=== PATIENT | female | born 1940 | race African-American/Black ===

== ENCOUNTER → 2016-11-13 | Outpatient (CLI) | payer MEDICARE ==
[2014-10-02 13:17] VITALS: BP 112/58
[~2016-11-13] MED LIST: HYDR25TA PO
--- NOTE | 2016-11-13 13:17 | KCIC ---
PROCEDURE Two-view chest HISTORY Chronic shortness of air, bronchitis COMPARISON 10/23/2011 FINDINGS Two views of the chest are submitted. There is again severe superior thoracic dextroscoliosis. There is again volume loss of the superior left hemithorax. Mild interstitial opacity has not convincingly changed, also likely mild fibrotic change of the mid left perico thorax. There is no significant dependent pleural fluid or pneumothorax. No convincing new infiltrate is identified. Heart size is stable. IMPRESSION There is again severe superior thoracic dextroscoliosis and volume loss of the superior left hemithorax, no convincing radiographic evidence of acute cardiopulmonary disease. Electronically signed by: James Mcdermott MD (Nov 13, 2016 13:16:19)
== END | disposition home or self-care (01) ==
LOC: KCIC 11:42
PROVIDERS: ATTEND Internal Medicine Pulmonary Disease
DX: R06.02 Shortness of breath (principal); Z87.09 Personal history of other diseases of the respiratory system
CPT/HCPCS: 71020

== ENCOUNTER 2019-06-21 10:12 | Emergency (ER) | payer MEDICARE ==
[~2019-06-21] VITALS: Ht 160 cm; Wt 49.0 kg
[2019-06-21] MEDS ORDERED: ALPRAZolam 0.5 MG TABLET PO ONE (11:00)
--- NOTE | 2019-06-21 11:11 | PHYS DOC ---
Past Medical History Past Medical History: Anxiety, Asthma, Bipolar, Other Additional Past Medical Histor: colitis, asthma, Past Surgical History: Hysterectomy, Other Additional Past Surgical Histo: hiatal hernia Alcohol Use: None Drug Use: None Adult General Chief Complaint Chief Complaint: SHORTNESS OF BREATH [facility] HPI Patient is a 79 year old female patient with history of bipolar and anxiety who presents with complaining of shaking and weakness. Patient complaining of sudden onset of weakness and shaking of upper extremities that started about 90 minutes prior to arrival to ER with lives weakness and problem with walking because of weakness. Patient denies focal weakness and numbness of lower extremities. Patient also complaining of shortness of breath started about 40 minutes prior to arrival as a constant problem without cough, chest pain, fever and chills, n ausea and vomiting, urinary symptom. Patient states she had episodes of anxiety but doesn't think this is a panic attack or anxiety. Review of Systems Review of Systems Constitutional: Denies fever or chills [] Eyes: Denies change in visual acuity, redness, or eye pain [] HENT: Denies nasal congestion or sore throat [] Respiratory: Denies cough, reports shortness of breath [] Cardiovascular: No additional information not addressed in HPI [] GI: Denies abdominal pain, nausea, vomiting, bloody stools or diarrhea [] : Denies dysuria or hematuria [] Musculoskeletal: Denies back pain or joint pain [] Integument: Denies rash or skin lesions [] Neurologic: Denies headache, focal weakness or sensory changes [] Endocrine: Denies polyuria or polydipsia [] All other systems were reviewed and found to be within normal limits, except as documented in this note. Current Medications Current Medications Current Medications Medications (Trade) Dose Ordered Sig/Angelina Start Time Stop Time Status Last Admin Dose Admin Alprazolam (Xanax) 1 mg 1X ONCE 06/21/19 11:00 06/21/19 11:03 DC 06/21/19 11:04 1 MG Bacitracin (Bacitracin Zinc Oint Pkt) 2 pkt 1X ONCE 06/21/19 12:15 06/21/19 12:18 DC 06/21/19 12:16 2 PKT Lorazepam (Ativan Inj) 1 mg 1X ONCE 06/21/19 10:45 06/21/19 11:00 DC Allergies Allergies Allergies Coded Allergies Type Severity Reaction Last Updated Verified aspirin Allergy Unknown 10/02/14 No Physical Exam Physical Exam C Constitutional: Well well nourished, mild distress, non-toxic appearance. [] HENT: Normocephalic, atraumatic. Eyes: PERRLA, EOMI, conjunctiva normal, no discharge. [] Neck: Normal range of motion, no tenderness, supple, no stridor. [] Cardiovascular:Heart rate regular rhythm, no murmur [] Lungs & Thorax: Bilateral breath sounds clear to auscultation [] Abdomen: Bowel sounds normal, soft, no tenderness, no masses, no pulsatile masses. [] Skin: Warm, dry, no erythema, no rash. [] Back: No tenderness, no CVA tenderness. [] Extremities: No tenderness, no cyanosis, no clubbing, ROM intact, no edema. [] Neurologic: Alert and oriented X 3, no focal deficits noted. [] Psychologic: Affect anxious, mood normal. [] Current Patient Data Vital Signs Vital Signs Date Time Temp Pulse Resp B/P (MAP) Pulse Ox O2 Delivery O2 Flow Rate FiO2 06/21/19 11:45 84 18 151/83 (105) 97 Room Air 06/21/19 10:18 97.8 97.8 Lab Values Laboratory Tests Test 06/21/19 11:25 White Blood Count 3.4 x10^3/uL (4.0-11.0) L Red Blood Count 4.41 x10^6/uL (3.50-5.40) Hemoglobin 13.5 g/dL (12.0-15.5) Hematocrit 40.6 % (36.0-47.0) Mean Corpuscular Volume 92 fL (79-100) Mean Corpuscular Hemoglobin 31 pg (25-35) Mean Corpuscular Hemoglobin Concent 33 g/dL (31-37) Red Cell Distribution Width 13.5 % (11.5-14.5) Platelet Count 305 x10^3/uL (140-400) Neutrophils (%) (Auto) 46 % (31-73) Lymphocytes (%) (Auto) 41 % (24-48) Monocytes (%) (Auto) 10 % (0-9) H Eosinophils (%) (Auto) 2 % (0-3) Basophils (%) (Auto) 1 % (0-3) Neutrophils # (Auto) 1.6 x10^3/uL (1.8-7.7) L Lymphocytes # (Auto) 1.4 x10^3/uL (1.0-4.8) Monocytes # (Auto) 0.3 x10^3/uL (0.0-1.1) Eosinophils # (Auto) 0.1 x10^3/uL (0.0-0.7) Basophils # (Auto) 0.0 x10^3/uL (0.0-0.2) Prothrombin Time 13.1 SEC (11.7-14.0) Prothrombin Time INR 1.0 (0.8-1.1) Sodium Level 147 mmol/L (136-145) H Potassium Level 4.8 mmol/L (3.5-5.1) Chloride Level 108 mmol/L (98-107) H Carbon Dioxide Level 32 mmol/L (21-32) Anion Gap 7 (6-14) Blood Urea Nitrogen 17 mg/dL (7-20) Creatinine 1.2 mg/dL (0.6-1.0) H Estimated GFR (Cockcroft-Gault) 52.7 BUN/Creatinine Ratio 14 (6-20) Glucose Level 92 mg/dL (70-99) Lactic Acid Level 1.8 mmol/L (0.4-2.0) Calcium Level 9.5 mg/dL (8.5-10.1) Magnesium Level 2.2 mg/dL (1.8-2.4) Total Bilirubin 0.3 mg/dL (0.2-1.0) Aspartate Amino Transferase (AST) 23 U/L (15-37) Alanine Aminotransferase (ALT) 20 U/L (14-59) Alkaline Phosphatase 77 U/L (46-116) Creatine Kinase 124 U/L (26-192) Troponin I Quantitative < 0.017 ng/mL (0.000-0.055) DI-Mms-K-Type Natriuretic Peptide 48 pg/mL (0-449) Total Protein 7.0 g/dL (6.4-8.2) Albumin 4.0 g/dL (3.4-5.0) Albumin/Globulin Ratio 1.3 (1.0-1.7) Lipase 143 U/L (73-393) Laboratory Tests 06/21/19 11:25 Laboratory Tests 06/21/19 11:25 EKG EKG EKG interpreted by me. EKG at 1028 showed normal sinus rhythm at rate of 78, abnormal left axis deviation, left anterior fascicular block, nonspecific intraventricular block, RVH, no acute ST and T-wave elevation, no change of EKG from 10/02/2014 Radiology/Procedures Radiology/Procedures [][address] [address] IMAGING REPORT Signed PATIENT: MICHAEL AREVALO ACCOUNT: [id number] : 1940 LOCATION: ER AGE: 79 SEX: F EXAM STATUS: REG ER ORD. PHYSICIAN: DAVID MORALES MD REASON: Weak and dizzy Blood work 11:20 PROCEDURE: PORTABLE CHEST 1V PORTABLE CHEST 1V 06/21/2019 10:29 AM INDICATION: Weak and dizzy COMPARISON: 11/13/2016 TECHNIQUE: Portable frontal view of the chest is provided. FINDINGS: The cardiomediastinal silhouette is similar in appearance. Stable bandlike density in the left midlung which may represent scarring. There is S-shaped scoliosis of the thoracolumbar spine, stable. There are no significant pleural effusions. There is no pulmonary vascular congestion. No pneumothorax. IMPRESSION: There is no acute cardiopulmonary process. Electronically signed by: Erika Carvalho MD (06/21/2019 12:00 PM) [facility] DICTATED and SIGNED BY: ERIKA CARVALHO MD DATE: 06/21/[address] [place] [id number] IMAGING REPORT Signed PATIENT: MICHAEL AREVALO ACCOUNT: [id number] : 1940 LOCATION: ER AGE: 79 SEX: F EXAM STATUS: REG ER ORD. PHYSICIAN: DAVID MORALES MD REASON: dizziness and generalized weakness PROCEDURE: CT HEAD WO CONTRAST CT of the head Axial CT images of the head were obtained without IV contrast. Exposure: One or more of the following individualized dose reduction techniques were utilized for this examination: 1. Automated exposure control 2. Adjustment of the mA and/or kV according to patient size 3. Use of iterative reconstruction technique Comparison: None. Indication: Dizziness and weakness Findings: No mass, mass effect or hemorrhage is seen. The ventricles and cortical sulci are mildly enlarged. There are diffuse periventricular white matter hypodensities. The basilar cisterns are unremarkable. No midline shift is noted. There is no intra or extra axial fluid collection. There is diffuse calcification of the bilateral internal carotid arteries and vertebral arteries. No bony or soft tissue abnormality is seen. The visualized paranasal sinuses are clear. Impression: 1. No acute mass, mass effect or hemorrhage. 2. Periventricular white matter ischemic change. Age appropriate brain atrophy. 3. Diffuse mild atherosclerotic disease of the intracranial vessels. Electronically signed by: Wiliam Castellanos MD (06/21/2019 11:22 AM) [facility] Course & Med Decision Making Course & Med Decision Making Pertinent Labs and Imaging studies reviewed. (See chart for details) Evaluation of patient in ER showed 79-year-old female patient with history of bipolar disorder and complaining of several problems including shortness of breath and dizziness. Patient had unremarkable physical exam with O2 sats of 100% at room air. Labs and chest x-ray and EKG was unremarkable. Patient felt better with treatment in ER. She was advised to continue home medication and follow up with her primary care physician. I've spoken with the patient and/or caregivers. I've explained the patient's condition, diagnosis and treatment plan based on information available to me at this time. I've answered the patient's and/or caregivers questions and addressed any concerns. The patient and/or caregivers have a good understanding the patient's diagnosis, condition and treatment plan as can be expected at this point. Vital signs have been stabilized. The patient's condition is stable for discharge from the emergency department. The patient will pursue further outpatient evaluation with her primary care provider or other designated consulting physician as outlined in the discharge instructions. Patient and/or caregivers are agreeable to this plan of care and follow-up instructions have been explained in detail. The patient and/or caregivers have received these instructions in written format and expressed understanding of these discharge instructions. The patient and her caregivers are aware that if any significant change in condition or worsening of symptoms should prompt him to immediately return to this of the closest emergency department. If an emergent department is not readily available I would encourage him to call 911. Varsha Disclaimer Dragon Disclaimer This electronic medical record was generated, in whole or in part, using a voice recognition dictation system. Departure Departure Impression: Primary Impression: Panic attack Additional Impressions: Bipolar disorder Renal insufficiency Hypernatremia Disposition: HOME, SELF-CARE (at 1203) Condition: IMPROVED Referrals: UNKNOWN PCP NAME (PCP) Patient Instructions: Anxiety and Panic Attacks Additional Instructions: Continue home medication Follow-up with your primary care physician in 3-5 days Return to ER if not getting better Problem Qualifiers Additional Impressions: Bipolar disorder Active/Remission status: remission status unspecified Qualified Codes: F31.9 - Bipolar disorder, unspecified DAVID MORALES MD Jun 21, 2019 11:11
--- NOTE | 2019-06-21 11:24 | RAD ---
CT of the head Axial CT images of the head were obtained without IV contrast. Exposure: One or more of the following individualized dose reduction techniques were utilized for this examination: 1. Automated exposure control 2. Adjustment of the mA and/or kV according to patient size 3. Use of iterative reconstruction technique Comparison: None. Indication: Dizziness and weakness Findings: No mass, mass effect or hemorrhage is seen. The ventricles and cortical sulci are mildly enlarged. There are diffuse periventricular white matter hypodensities. The basilar cisterns are unremarkable. No midline shift is noted. There is no intra or extra axial fluid collection. There is diffuse calcification of the bilateral internal carotid arteries and vertebral arteries. No bony or soft tissue abnormality is seen. The visualized paranasal sinuses are clear. Impression: 1. No acute mass, mass effect or hemorrhage. 2. Periventricular white matter ischemic change. Age appropriate brain atrophy. 3. Diffuse mild atherosclerotic disease of the intracranial vessels. Electronically signed by: Wiliam Castellanos MD (06/21/2019 11:22 AM) [facility]
[2019-06-21 11:33] LABS: BASO % 1 % (0-3); EOS # 0.1 x10^3/uL (0.0-0.7); EOS % 2 % (0-3); HEMATOCRIT 40.6 % (36.0-47.0); HEMOGLOBIN 13.5 g/dL (12.0-15.5); LYMPH # 1.4 x10^3/uL (1.0-4.8); LYMPH % 41 % (24-48); MEAN CORPUSCULAR HEMOGLOBIN 31 pg (25-35); MEAN CORPUSCULAR HGB CONC 33 g/dL (31-37); MEAN CORPUSCULAR VOLUME 92 fL (79-100); MONO # 0.3 x10^3/uL (0.0-1.1); MONO % 10 % (0-9); NEUT # 1.6 x10^3/uL (1.8-7.7); NEUT % 46 % (31-73); PLATELET COUNT 305 x10^3/uL (140-400); RED BLOOD COUNT 4.41 x10^6/uL (3.50-5.40); RED CELL DISTRIBUTION WIDTH 13.5 % (11.5-14.5); WHITE BLOOD COUNT 3.4 x10^3/uL (4.0-11.0)
[2019-06-21 11:44] LABS: PROTHROMBIN TIME PATIENT 13.1 SEC (11.7-14.0)
[2019-06-21 11:45] VITALS: BP 151/83
[2019-06-21 12:03] LABS: CALCIUM 9.5 mg/dL (8.5-10.1); CREATININE 1.2 mg/dL (0.6-1.0); GFR 52.7; POTASSIUM 4.8 mmol/L (3.5-5.1)
--- NOTE | 2019-06-21 12:03 | RAD ---
PORTABLE CHEST 1V 06/21/2019 10:29 AM INDICATION: Weak and dizzy COMPARISON: 11/13/2016 TECHNIQUE: Portable frontal view of the chest is provided. FINDINGS: The cardiomediastinal silhouette is similar in appearance. Stable bandlike density in the left midlung which may represent scarring. There is S-shaped scoliosis of the thoracolumbar spine, stable. There are no significant pleural effusions. There is no pulmonary vascular congestion. No pneumothorax. IMPRESSION: There is no acute cardiopulmonary process. Electronically signed by: Suni Del Rosario MD (06/21/2019 12:00 PM) [facility]
[2019-06-21 12:10] LABS: ALBUMIN/GLOBULIN RATIO 1.3 (1.0-1.7); MAGNESIUM 2.2 mg/dL (1.8-2.4); TOTAL BILIRUBIN 0.3 mg/dL (0.2-1.0)
[2019-06-21] MEDS ORDERED: BACITRACIN TOPICAL OINT PACKET. TP ONE ×2 (12:11→12:15)
--- NOTE | 2019-06-21 15:53 | EKG ---
[facility] [address] [place] [address] Test Date: 2019-06-21 Test Time: 10:28:39 Pat Name: MICHAEL AREVALO Department: Room: Gender: F Deck Scaler: : 1940 Requested By: DAVID MORALES Order Number: [id number] Reading MD: Measurements Intervals [place] Rate: 78 P: 45 OR: 132 QRS: -81 QRSD: 134 T: 70 QT: 420 QTc: 483 Interpretive Statements SINUS RHYTHM ABNORMAL LEFT AXIS DEVIATION S1,S2,S3 PATTERN LEFT ANTERIOR FASCICULAR BLOCK NON SPECIFIC INTRAVENTRICULAR BLOCK RVH WITH REPOLARIZATION ABNORMALITY ABNORMAL ECG RI6.01 No previous ECG available for comparison
== END 2019-06-21 12:18 | disposition home or self-care (01) ==
LOC: ER 10:12
DX: F41.0 Panic disorder [episodic paroxysmal anxiety] (principal); F31.9 Bipolar disorder, unspecified; N28.9 Disorder of kidney and ureter, unspecified; E87.0 Hyperosmolality and hypernatremia; R51 Headache; J45.909 Unspecified asthma, uncomplicated; Z90.710 Acquired absence of both cervix and uterus; Z98.890 Other specified postprocedural states; Z88.6 Allergy status to analgesic agent
CPT/HCPCS: 36415; 70450; 71045; 80053; 82550; 83605; 83690; 83735; 83880; 84484; 85025; 85610; 93005; 99285-25